=== PATIENT | male | born 1950 | race Caucasian/White ===

== ENCOUNTER 2017-03-11 17:10 | Inpatient (IN) | payer OTHER, MEDICARE ==
[~2017-03-11] VITALS: Ht 182.9 cm; Wt 123.3 kg
[2017-03-11] VITALS (8 sets, daily range): BP systolic 105–163; BP diastolic 65–85; PULSE 84–95; RESP 16–20; TEMP 98–98.6; O2SAT 95–100
[~2017-03-11 17:10] MED LIST: LISI-363 PO; METF500 PO; METO50CR PO; OXYC1SOL5 PO; RYTH225C PO; WARF3 PO
--- NOTE | 2017-03-11 17:51 | PD ---
HPI Chief Complaint: Respiratory Symptoms Time Seen by Provider: 17:50 Travel History International Travel<30 days: No Contact w/Intl Traveler<30days: No Traveled to known affect area: No History of Present Illness HPI 66-year-old male presents to emergency Department with several week history of increasing shortness of breath with exertion. Patient has history of atrial fibrillation, as well as history of anemia requiring transfusion in the distant past. Patient has been worked up for possible GI bleed at that time without significant findings according to the patient. Dark stools in the last several days. Patient denies abdominal pain, nausea, vomiting, or diarrhea. Patient denies chest pain, or wheezing. Patient denies lower extremity pain or swelling. He denies upper respiratory symptoms. The patient states increased dyspnea with any exertion, Even getting up to the bathroom. He reiterates this is been gradual onset over the past 2 weeks. He is allergic to adhesive. PFSH Past Medical History Arthritis: Yes (NECK, BACK, ALL JOINTS) Asthma: No Atrial Fibrillation: Yes Autoimmune Disease: No Blood Disorders: No Anxiety: Yes ( SAID HE HAS BEEN ANXIOUS ) Depression: No Heart Rhythm Problems: Yes (AFIB ) Cancer: Yes (left upper lung) Cardiovascular Problems: Yes (ATRIAL FIBRILLATION) High Cholesterol: Yes (BORDERLINE ) Chemotherapy: Yes Chest Pain: No Congestive Heart Failure: No COPD: No Cerebrovascular Accident: No Coronary Artery Disease: Yes Diabetes: Yes Diminished Hearing: No Diverticulitis: Yes Endocrine: Yes Gastrointestinal Disorders: Yes (hx of diverticulitis and ulcer) GERD: No Genitourinary: Yes Headaches: Yes Hepatitis: No Hiatal Hernia: No Herniated Disk: Yes Hypertension: Yes Immune Disorder: No Kidney Stones: Yes Musculoskeletal: Yes Neurologic: Yes (8YRS AGO -TIA ) Psychiatric: No Reproductive: No Respiratory: Yes (LUNG CANCER- L LOBECTOMY 2 YEARS AGO ) Immunizations Current: Yes ([id number]) Migraines: No Myocardial Infarction: No Radiation Therapy: No Renal Failure: No Seizures: No Sickle Cell Disease: No Sleep Apnea: No Thyroid Disease: No Ulcer: Yes Past Surgical History Abdominal Surgery: Yes (resection bowel/ gallbladder removal ) AICD: No Appendectomy: No Arteriovenous Shunt: No Body Medical Devices: METAL FRAGMENT IN ABD- WORKING ON RAILROAD Cardiac Surgery: No Cholecystectomy: Yes Ear Surgery: No Endocrine Surgery: No Eye Surgery: No Genitourinary Surgery: Yes (kidney stone removal/ laser ) Gynecologic Surgery: No Insulin Pump: No Joint Replacement: No Oral Surgery: Yes (gum surgery/ wisdome teeth ) Pacemaker: No Thoracic Surgery: Yes (left lung needle bx, L LUNG PARTIAL LOBECTOMY ) Tonsillectomy: Yes (AND ADENOIDS) Other Surgery: Yes Social History Alcohol Use: Yes (RARE) Tobacco Use: No Substance Use: No Allergies-Medications (Allergen,Severity, Reaction): Coded Allergies: adhesive (Unverified Allergy, Severe, skin irritation, 03/11/17) PAPER TAPE OK Reported Meds & Prescriptions Reported Meds & Active Scripts Active Reported Warfarin 3 Mg Tab 3 Mg PO DAILY Metoprolol Succinate ER 24 HR (Metoprolol Succinate) 50 Mg Tab 50 Mg PO DAILY Metformin (Metformin HCl) 500 Mg Tab 500 Mg PO BIDPC Lisinopril 20 Mg Tab 20 Mg PO DAILY Review of Systems Except as stated in HPI: all other systems reviewed are Neg General / Constitutional: No: Fever Eyes: No: Visual changes HENT: No: Headaches Cardiovascular: Positive: Irregular Rhythm, Dyspnea on exertion, No: Chest Pain or Discomfort, Palpitations, Tachycardia, Diaphoresis, Syncope, Varicosities, Edema, Cyanosis, Varicosities, Phlebitis, Claudication, Other Respiratory: No: Cough, Shortness of Breath, Wheezing Gastrointestinal: Positive: Hematochezia, Other, No: Nausea, Vomiting, Diarrhea , Abdominal Pain, Hematemesis, Constipation, Changes in Bowel Habits, Indigestion, Dysphagia, Loss of Appetite (dark stools) Genitourinary: No: Urgency, Frequency, Dysuria Musculoskeletal: No: Myalgias, Arthralgias, Limited ROM, Edema, Pain Skin: No Rash Neurologic: No: Weakness Psychiatric: No: Depression Endocrine: No: Polydipsia Hematologic/Lymphatic: No: Easy Bruising Physical Exam Narrative GENERAL: Patient appears in no acute distress. SKIN: Warm and dry. Decreased pallor. Normal turgor. HEAD: Atraumatic. Normocephalic. EYES: Pupils equal and round. No scleral icterus. Decreased pallor or drainage. ENT: No nasal bleeding or discharge. Mucous membranes pink and moist. Pharynx is clear. Airway is patent. NECK: Trachea midline. No JVD. Supple and nontender. CARDIOVASCULAR: Irregular rate and rhythm. RESPIRATORY: No accessory muscle use. Coarse to auscultation. Breath sounds equal bilaterally. GASTROINTESTINAL: Abdomen soft, non-tender, nondistended. Hepatic and splenic margins not palpable. MUSCULOSKELETAL: Extremities without clubbing, cyanosis, or edema. No obvious deformities. NEUROLOGICAL: Awake and alert. No obvious cranial nerve deficits. Motor grossly within normal limits. Five out of 5 muscle strength in the arms and legs. Normal speech. PSYCHIATRIC: Appropriate mood and affect; insight and judgment normal. Data Data Last Documented VS Vital Signs Date Time Temp Pulse Resp B/P (MAP) Pulse Ox O2 Delivery O2 Flow Rate FiO2 03/11/17 17:30 108 16 99 Room Air 03/11/17 17:12 98.6 163/85 (111) Orders Orders Complete Blood Count With Diff (03/11/17:) Comprehensive Metabolic Panel (03/11/17:) Act Partial Throm Time (Ptt) (03/11/17:) Prothrombin Time / Inr (Pt) (03/11/17:) Magnesium (Mg) (03/11/17:) Ckmb (Isoenzyme) Profile (03/11/17 17:22) Troponin I (03/11/17 17:22) Electrocardiogram (03/11/17 17:22) Chest, Pa & Lat (03/11/17 17:22) Type And Screen (03/11/17 18:05) Iv Access Insert/Monitor (03/11/17 18:05) Ecg Monitoring (03/11/17 18:05) Oximetry (03/11/17 18:05) Pantoprazole Inj (Protonix Inj) (03/11/17 18:15) Sodium Chloride 0.9% Flush (Ns Flush) (03/11/17 18:15) Red Blood Cells (Rbc) (03/11/17 18:08) Blood Product Administration (03/11/17 18:08) Sodium Chlor 0.9% 250 Ml Inj (Ns 250 Ml (03/11/17 18:15) Diphenhydramine Inj (Benadryl Inj) (03/11/17 18:15) Diphenhydramine Inj (Benadryl Inj) (03/11/17 18:15) Acetaminophen (Tylenol) (03/11/17 18:15) Acetaminophen (Tylenol) (03/11/17 18:15) CKMB (03/11/17 17:33) CKMB% (03/11/17 17:33) Labs Laboratory Tests Test 03/11/17 17:33 White Blood Count 9.5 TH/MM3 Red Blood Count 2.39 MIL/MM3 Hemoglobin 7.7 GM/DL Hematocrit 22.8 % Mean Corpuscular Volume 95.4 FL Mean Corpuscular Hemoglobin 32.3 PG Mean Corpuscular Hemoglobin Concent 33.8 % Red Cell Distribution Width 16.9 % Platelet Count 509 TH/MM3 Mean Platelet Volume 6.8 FL Neutrophils (%) (Auto) 67.9 % Lymphocytes (%) (Auto) 24.9 % Monocytes (%) (Auto) 6.3 % Eosinophils (%) (Auto) 0.4 % Basophils (%) (Auto) 0.5 % Neutrophils # (Auto) 6.5 TH/MM3 Lymphocytes # (Auto) 2.4 TH/MM3 Monocytes # (Auto) 0.6 TH/MM3 Eosinophils # (Auto) 0.0 TH/MM3 Basophils # (Auto) 0.0 TH/MM3 CBC Comment DIFF FINAL Differential Comment Prothrombin Time 20.5 SEC Prothromb Time International Ratio 2.0 RATIO Activated Partial Thromboplast Time 31.7 SEC Blood Urea Nitrogen 25 MG/DL Creatinine 1.32 MG/DL Random Glucose 128 MG/DL Total Protein 6.9 GM/DL Albumin 3.4 GM/DL Calcium Level 9.1 MG/DL Magnesium Level 1.9 MG/DL Alkaline Phosphatase 78 U/L Aspartate Amino Transf (AST/SGOT) 33 U/L Alanine Aminotransferase (ALT/SGPT) 36 U/L Total Bilirubin 0.3 MG/DL Sodium Level 139 MEQ/L Potassium Level 4.1 MEQ/L Chloride Level 106 MEQ/L Carbon Dioxide Level 26.5 MEQ/L Anion Gap 7 MEQ/L Estimat Glomerular Filtration Rate 54 ML/MIN Total Creatine Kinase 299 U/L Troponin I LESS THAN 0.02 NG/ML MDM Medical Decision Making Medical Screen Exam Complete: Yes Emergency Medical Condition: Yes Medical Record Reviewed: Yes Differential Diagnosis Symptomatic anemia. GI bleed. Anticoagulated. Dyspnea with exertion. History of lung cancer. Narrative Course Patient appears medically stable at time of exam. Vital signs are unremarkable. Rectal exam shows grossly guaiac positive stool. Chest x-ray shows no acute process per radiologist. Labs ordered including CBC, CMP, cardiac panel. EKG shows patient for ablation with rapid RVR with a pulse rate of 105. There is moderate generalized ST depression measured at 0.05. Type and screen is ordered. CBC is significant for hemoglobin of 7.7 with a hematocrit of 22.8 and a guaiac positive patient. Platelet count is elevated at 509. Coagulation studies shows a PT of 20.5, INR of 2.0, APTT is 31.7. Patient is on Coumadin. Chemistry show normal electrolytes. BUN is 25, crit need is 1.32, GFR is 54, glucose is 128 in a known type II diabetic. Troponin is less than 0.02. IV access is obtained and the patient is given 40 mg pantoprazole IV. One unit of blood is ordered to be given. 1830 hrs. call placed to the hospitalist for admission. Diagnosis Primary Impression: Symptomatic anemia Additional Impressions: Guaiac positive stools Anticoagulated on Coumadin Atrial fibrillation Qualified Codes: I48.2 - Chronic atrial fibrillation Condition: Stable Josiah Clifton Mar 11, 2017 17:51
--- NOTE | 2017-03-11 18:01 | RADRPT ---
EXAM DATE/TIME: 03/11/2017 17:41 [facility] COMPARISON: CHEST PA & LAT, August 24, 2014, 12:08. INDICATIONS : Short of breath. MEDICAL HISTORY : Carcinoma, lung. SURGICAL HISTORY : Lobectomy. ENCOUNTER: Initial ACUITY: 1 week PAIN SCORE: 0/10 LOCATION: Bilateral chest FINDINGS: The lungs are clear without infiltrate, nodule, or mass. There is no appreciable pleural effusion fo r technique. Heart and mediastinum are unremarkable. There are postsurgical changes on the left side and not significantly changed. CONCLUSION: 1. Postoperative left upper lobectomy with left basal scarring and minimal pleural thickening. No acu te findings. Alvin Bonilla MD on March 11, 2017 at 17:58
[2017-03-11] MEDS ORDERED: LISI-515 PO (18:04)
[2017-03-11] MEDS ORDERED: METF500T PO (18:04)
[2017-03-11] MEDS ORDERED: METO1TAB9 PO (18:05)
[2017-03-11] MEDS ORDERED: WARF-58 PO (18:05)
[2017-03-11 18:06] LABS: AUTOMATED NEUTROPHIL # 6.5 TH/MM3 (1.8-7.7); BASOPHIL % 0.5 % (0.0-2.0); EOSINOPHIL % 0.4 % (0.0-4.0); HEMATOCRIT 22.8 % (39.0-51.0); HEMO FLAGS DIFF FINAL; LYMPH % 24.9 % (9.0-44.0); LYMPHOCYTE # 2.4 TH/MM3 (1.0-4.8); MEAN CELL VOLUME 95.4 FL (80.0-100.0); MEAN CORPUSCULAR HEMOGLOBIN 32.3 PG (27.0-34.0); MEAN CORPUSCULAR HGB CONC 33.8 % (32.0-36.0); MONO % 6.3 % (0.0-8.0); NEUT % 67.9 % (16.0-70.0); PLATELET COUNT 509 TH/MM3 (150-450); RED BLOOD COUNT 2.39 MIL/MM3 (4.50-5.90); RED CELL DISTRIBUTION WIDTH 16.9 % (11.6-17.2); WHITE BLOOD COUNT 9.5 TH/MM3 (4.0-11.0)
[2017-03-11] MEDS ORDERED: SODIUM CHLORIDE 0.9% FLUSH 10 ML FLUSH IV FLUSH PRN ×2 (18:15→19:45)
[2017-03-11] MEDS ORDERED: PANTOPRAZOLE SODIUM 40 MG VIAL IVP ONE (18:15)
[2017-03-11] MEDS ORDERED: diphenhydrAMINE HCL 50 MG/ML VIAL IV PUSH ONE (18:15)
[2017-03-11] MEDS ORDERED: SODIUM CHLOR 0.9% 250 ML INJ 250 ML IV ONE (18:15)
[2017-03-11] MEDS ORDERED: diphenhydrAMINE HCL 50 MG/ML VIAL IV PUSH PRN (18:15)
[2017-03-11] MEDS ORDERED: ACETAMINOPHEN 325 MG TAB PO PRN (18:15)
[2017-03-11] MEDS ORDERED: ACETAMINOPHEN 325 MG TAB PO ONE (18:15)
[2017-03-11 18:16] LABS: APTT (PATIENT) 31.7 SEC (24.3-30.1); PROTHROMBIN TIME - PATIENT 20.5 SEC (9.8-11.6)
[2017-03-11 18:30] LABS: ALT (GPT) 36 U/L (12-78); ANION GAP 7 MEQ/L (5-15); AST (GOT) 33 U/L (15-37); BICARBONATE 26.5 MEQ/L (21.0-32.0); BLOOD UREA NITROGEN 25 MG/DL (7-18); CHLORIDE 106 MEQ/L (98-107); GLOMERULAR FILTRATION RATE 54 ML/MIN (>89); MAGNESIUM 1.9 MG/DL (1.5-2.5); POTASSIUM 4.1 MEQ/L (3.5-5.1); SODIUM (NA) 139 MEQ/L (136-145)
[2017-03-11 18:34] LABS: ALKALINE PHOSPHATASE 78 U/L (45-117); CREATINE KINASE 299 U/L (39-308); TOTAL BILIRUBIN ADULT 0.3 MG/DL (0.2-1.0)
[2017-03-11 18:46] LABS: CKMB 17.9 NG/ML (0.5-3.6)
[2017-03-11] MEDS ORDERED: SODIUM CHLOR 0.9% 1000 ML INJ 1,000 ML IV SCH (19:33)
[2017-03-11] MEDS ORDERED: GLUCAGON 1 MG/ML VIAL OTHER PRN (19:45)
[2017-03-11] MEDS ORDERED: DEXTROSE 50% IN WATER 50 ML VIAL(D50) IV PUSH PRN (19:45)
[2017-03-11] MEDS: DEXT 5%-NACL 0.9% 1000 ML INJ 1,000 ML IV SCH (20:58)
[2017-03-11] MEDS: SODIUM CHLORIDE 0.9% FLUSH 10 ML FLUSH IV FLUSH SCH (20:58)
--- NOTE | 2017-03-11 20:58 | HHI.HP ---
[facility] Service [facility] Primary Care Physician Denice Caballero MD ([place]ip[place]) Admission Diagnosis SYMPTOMATIC ANEMIA ON COUMADIN FOR AFIB Diagnoses: Travel History International Travel<30 Days: No Contact w/Intl Traveler <30 Da: No Traveled to Known Affected Are: No History of Present Illness 66-year-old male with a past medical history significant for A. fib anticoagulated on Coumadin, type 2 diabetes mellitus, history of DVT/PE and a history of small cell lung cancer presents to the emergency department with a 3 week history of increasing shortness of breath and fatigue. The patient's hemoglobin was found to be 7.7. He is tachycardic with a pulse of 108. Satting 99% on room air. He reports a history of black, tarry stools for several weeks. He was Hemoccult positive in the emergency department. He has no other complaints at this time. Reports a previous history of anemia requiring transfusion approximately 5 years ago. EGD/colonoscopy done at that time showed no acute bleeding. Review of Systems Denies fever or chills Denies blurry vision, otorrhea, rhinorrhea Denies sore throat and cough No chest pain, palpitations, positive shortness of breath No abdominal pain Denies constipation/diarrhea/nausea/vomiting Denies muscle pain/weakness No rashes Past Family Social History Past Medical History History of DVT/PE Atrial fibrillation anticoagulated on Coumadin Type 2 diabetes mellitus History of small cell lung cancer status post lobectomy and chemotherapy completed in 2013 Past Surgical History Back surgery 3 Diverticulitis surgery 2 Right knee surgery Lobectomy left lung Reported Medications Reported Meds & Active Scripts Active Reported Warfarin 3 Mg Tab 3 Mg PO DAILY Metoprolol Succinate ER 24 HR (Metoprolol Succinate) 50 Mg Tab 50 Mg PO DAILY Metformin (Metformin HCl) 500 Mg Tab 500 Mg PO BIDPC Lisinopril 20 Mg Tab 20 Mg PO DAILY Allergies: Coded Allergies: adhesive (Unverified Allergy, Severe, skin irritation, 03/11/17) PAPER TAPE OK Family History No family history of CAD/DM Social History Quit tobacco 3-4 years ago. Smoked for approximately 50 years. Rare alcohol use. Denies illicit drugs. Physical Exam Vital Signs Vital Signs Date Time Temp Pulse Resp B/P (MAP) Pulse Ox O2 Delivery O2 Flow Rate FiO2 03/11/17 19:17 85 16 142/79 (100) 100 Room Air 03/11/17 19:16 85 16 142/79 (100) 100 Room Air 03/11/17 17:30 108 16 99 Room Air 03/11/17 17:12 98.6 95 18 163/85 (111) 99 Physical Exam GENERAL: male sitting up in bed SKIN: No rashes, ecchymoses or lesions. Cool and dry. HEAD: Atraumatic. Normocephalic. No temporal or scalp tenderness. EYES: Pupils equal round and reactive. Extraocular motions intact. No scleral icterus. No injection or drainage. ENT: Nose without bleeding, purulent drainage or septal hematoma. Throat without erythema, tonsillar hypertrophy or exudate. Uvula midline. Airway patent. NECK: Trachea midline. No JVD or lymphadenopathy. Supple, nontender, no meningeal signs. CARDIOVASCULAR: Tachycardic. Irregularly irregular rhythm without murmurs, gallops, or rubs. RESPIRATORY: Clear to auscultation. Breath sounds equal bilaterally. No wheezes , rales, or rhonchi. GASTROINTESTINAL: Abdomen soft, non-tender, nondistended. No hepato-splenomegaly , or palpable masses. No guarding. MUSCULOSKELETAL: Extremities without clubbing, cyanosis, or edema. No joint tenderness, effusion, or edema noted. No calf tenderness. NEUROLOGICAL: Awake and alert. Cranial nerves II through XII intact. Motor and sensory grossly within normal limits. Normal speech. Laboratory Laboratory Tests Test 03/11/17 17:33 White Blood Count 9.5 Red Blood Count 2.39 Hemoglobin 7.7 Hematocrit 22.8 Mean Corpuscular Volume 95.4 Mean Corpuscular Hemoglobin 32.3 Mean Corpuscular Hemoglobin Concent 33.8 Red Cell Distribution Width 16.9 Platelet Count 509 Mean Platelet Volume 6.8 Neutrophils (%) (Auto) 67.9 Lymphocytes (%) (Auto) 24.9 Monocytes (%) (Auto) 6.3 Eosinophils (%) (Auto) 0.4 Basophils (%) (Auto) 0.5 Neutrophils # (Auto) 6.5 Lymphocytes # (Auto) 2.4 Monocytes # (Auto) 0.6 Eosinophils # (Auto) 0.0 Basophils # (Auto) 0.0 CBC Comment DIFF FINAL Differential Comment Prothrombin Time 20.5 Prothromb Time International Ratio 2.0 Activated Partial Thromboplast Time 31.7 Blood Urea Nitrogen 25 Creatinine 1.32 Random Glucose 128 Total Protein 6.9 Albumin 3.4 Calcium Level 9.1 Magnesium Level 1.9 Alkaline Phosphatase 78 Aspartate Amino Transf (AST/SGOT) 33 Alanine Aminotransferase (ALT/SGPT) 36 Total Bilirubin 0.3 Sodium Level 139 Potassium Level 4.1 Chloride Level 106 Carbon Dioxide Level 26.5 Anion Gap 7 Estimat Glomerular Filtration Rate 54 Total Creatine Kinase 299 Creatine Kinase MB 17.9 Troponin I LESS THAN 0.02 Result Diagram: 03/11/17173203/11/171732 Capringiles VTE Risk Assessment Caprini VTE Risk Assessment: Mod/High Risk (score >= 2) Caprini Risk Assessment Model Point Value = 1 Point Value = 2 Point Value = 3 Point Value = 5 Age 41-60 Minor surgery BMI > 25 kg/m2 Swollen legs Varicose veins or History of unexplained or recurrent spontaneous Oral contraceptives or hormone replacement Sepsis (< 1 month) Serious lung disease, including pneumonia (< 1 month) Abnormal pulmonary function Acute myocardial infarction Congestive heart failure (< 1 month) History of inflammatory bowel disease Medical patient at bed rest Age 61-74 Arthroscopic surgery Major open surgery (> 45 min) Laparoscopic surgery (> 45 min) Malignancy Confined to bed (> 72 hours) Immobilizing plaster cast Central venous access Age >= 75 History of VTE Family history of VTE Factor V Leiden Prothrombin [id number] Lupus anticoagulant Anticardiolipin antibodies Elevated serum homocysteine Heparin-induced thrombocytopenia Other congenital or acquired thrombophilia Stroke (< 1 month) Elective arthroplasty Hip, pelvis, or leg fracture Acute spinal cord injury (< 1 month) Prophylaxis Regimen Total Risk Factor Score Risk Level Prophylaxis Regimen 0-1 Low Early ambulation 2 Moderate Order ONE of the following: *Sequential Compression Device (SCD) *Heparin 5000 units SQ BID 3-4 Higher Order ONE of the following medications: *Heparin 5000 units SQ TID *Enoxaparin/Lovenox 40 mg SQ daily (WT < 150 kg, CrCl > 30 mL/min) *Enoxaparin/Lovenox 30 mg SQ daily (WT < 150 kg, CrCl > 10-29 mL/min) *Enoxaparin/Lovenox 30 mg SQ BID (WT < 150 kg, CrCl > 30 mL/min) AND/OR *Sequential Compression Device (SCD) 5 or more Highest Order ONE of the following medications: *Heparin 5000 units SQ TID (Preferred with Epidurals) *Enoxaparin/Lovenox 40 mg SQ daily (WT < 150 kg, CrCl > 30 mL/min) *Enoxaparin/Lovenox 30 mg SQ daily (WT < 150 kg, CrCl > 10-29 mL/min) *Enoxaparin/Lovenox 30 mg SQ BID (WT < 150 kg, CrCl > 30 mL/min) AND *Sequential Compression Device (SCD) Assessment and Plan Assessment and Plan Assessment/plan: 1. Severe anemia/GI bleed H&H 7.7/22.8 Transfuse 2 units PRBCs Serial H&H IV Protonix Hemoccult-positive in the ED with history of black, tarry stools Gastroenterology consulted, appreciate assistance 2. Tachycardia Suspect secondary to anemia Monitor 3. Atrial fibrillation Holding home Coumadin secondary to GI bleed INR 2.0 Continue metoprolol 4. HTN Continue home medications 5. GORDON Cr 1.32, was 1.23 in 2015 IVF hydration Avoid nephrotoxic agents Monitor renal function 6. Type 2 diabetes mellitus Holding home metformin SSI Monitor blood glucose FEN NPO D5 NS at 75 cc/hr Electrolytes: monitor and replete prn Holding pharmacologic anticoagulation secondary to GI bleed Case discussed with ER physician at length Physician Certification 2 Midnight Certification Type: Admission for Inpatient Services Order for Inpatient Services The services are ordered in accordance with Medicare regulations or non- Medicare payer requirements, as applicable. In the case of services not specified as inpatient-only, they are appropriately provided as inpatient services in accordance with the 2-midnight benchmark. Estimated LOS (days): 2 2 days is the estimated time the patient will need to remain in the hospital, assuming treatment plan goals are met and no additional complications. Post-Hospital Plan: Not yet determined Bianca Jacobs MD Mar 11, 2017 20:58
[2017-03-11] MEDS: INSULIN ASPART SUPPLEMENTAL SCALE SQ SCH (21:00)
[2017-03-12] VITALS (9 sets, daily range): BP systolic 87–112; BP diastolic 54–76; PULSE 72–92; RESP 18–20; TEMP 97.5–98.6; O2SAT 97–100
[2017-03-12 07:01] LABS: AUTOMATED NEUTROPHIL # 4.1 TH/MM3 (1.8-7.7); BASOPHIL # 0.1 TH/MM3 (0-0.2); BASOPHIL % 1.2 % (0.0-2.0); EOSINOPHIL # 0.1 TH/MM3 (0-0.4); EOSINOPHIL % 0.8 % (0.0-4.0); HEMATOCRIT 21.9 % (39.0-51.0); HEMO FLAGS DIFF FINAL; LYMPH % 24.3 % (9.0-44.0); LYMPHOCYTE # 1.5 TH/MM3 (1.0-4.8); MEAN CELL VOLUME 92.1 FL (80.0-100.0); MEAN CORPUSCULAR HEMOGLOBIN 31.8 PG (27.0-34.0); MEAN CORPUSCULAR HGB CONC 34.5 % (32.0-36.0); MONO % 5.8 % (0.0-8.0); NEUT % 67.9 % (16.0-70.0); PLATELET COUNT 393 TH/MM3 (150-450); RED BLOOD COUNT 2.37 MIL/MM3 (4.50-5.90); RED CELL DISTRIBUTION WIDTH 16.6 % (11.6-17.2)
[2017-03-12 07:16] LABS: INTERNATIONAL NORMALIZED RATIO 1.7 RATIO; PROTHROMBIN TIME - PATIENT 17.7 SEC (9.8-11.6)
[2017-03-12 07:23] LABS: ANION GAP 9 MEQ/L (5-15); AST (GOT) 28 U/L (15-37); BICARBONATE 24.4 MEQ/L (21.0-32.0); BLOOD UREA NITROGEN 21 MG/DL (7-18); CHLORIDE 106 MEQ/L (98-107); GLOMERULAR FILTRATION RATE 71 ML/MIN (>89); POTASSIUM 3.9 MEQ/L (3.5-5.1); SODIUM (NA) 139 MEQ/L (136-145)
[2017-03-12 07:24] LABS: ALT (GPT) 30 U/L (12-78)
[2017-03-12 07:26] LABS: ALKALINE PHOSPHATASE 68 U/L (45-117); TOTAL BILIRUBIN ADULT 0.7 MG/DL (0.2-1.0)
[2017-03-12] MEDS: INSULIN ASPART SUPPLEMENTAL SCALE SQ SCH ×4 (08:00→21:00)
[2017-03-12] MEDS: SODIUM CHLORIDE 0.9% FLUSH 10 ML FLUSH IV FLUSH SCH ×2 (09:00→23:32)
[2017-03-12] MEDS: DEXT 5%-NACL 0.9% 1000 ML INJ 1,000 ML IV SCH ×2 (09:05→23:20)
[2017-03-12] MEDS: LISINOPRIL 20 MG TAB PO SCH (09:18)
[2017-03-12] MEDS: METOPROLOL SUCCINATE 50 MG EXTENDED RELEASE TAB PO SCH (09:18)
--- NOTE | 2017-03-12 09:24 | PD.CONS ---
HPI History of Present Illness This is a 66 year old obese male who presents to the hospital with shortness of breath and fatigue. Patient states that he was feeling like his hemoglobin was dropping, started taking extra iron supplements. Patient states that he is on Coumadin understands the risk and benefit of GI bleed versus CVA. Patient states he had multiple testing done approximately 4 years ago, but no actual source of bleed was identified. Patient was discussing with nurse his request, and is refusing any testing for GI bleed even before my exam. He is requesting a blood transfusion, and notes that he will stay on his Coumadin due to the risk of stroke. Patient has a significant history of DVT, black tarry stools and fatigue related to his symptoms, diabetes mellitus. Patient was noted to be Hemoccult positive in the emergency room setting. He denies any nausea vomiting, no abdominal distention, no diarrhea, no constipation. (Jo-Ann Anderson) PFSH Past Medical History History of DVT/PE Atrial fibrillation anticoagulated on Coumadin Type 2 diabetes mellitus History of small cell lung cancer status post lobectomy and chemotherapy completed in 2013 Street of GI bleed 4 years ago Past Surgical History Back surgery 3 Diverticulitis surgery 2 Right knee surgery Lobectomy left lung (Jo-Ann Anderson) Coded Allergies: adhesive (Unverified Allergy, Severe, skin irritation, 03/11/17) PAPER TAPE OK Medications Administered Medications Medications (Trade) Dose Ordered Sig/Harsh Route PRN Reason Start Time Stop Time Status Last Admin Dose Admin Sodium Chloride 250 ml @ 15 mls/hr ONCE ONCE IV 03/11/17 18:15 03/12/17 10:54 03/11/17 22:15 Sodium Chloride (NS Flush) 2 ml UNSCH PRN IV FLUSH FLUSH AFTER USING IV ACCESS 03/11/17 19:45 03/11/17 21:19 Sodium Chloride (NS Flush) 2 ml BID IV FLUSH 03/11/17 21:00 03/11/17 20:58 Lisinopril (Prinivil) 20 mg DAILY PO 03/12/17 09:00 03/12/17 09:18 Metoprolol Succinate (Toprol Xl) 50 mg DAILY PO 03/12/17 09:00 03/12/17 09:18 Dextrose/Sodium Chloride 1,000 ml @ 75 mls/hr [id number] IV 03/11/17 19:45 03/11/17 20:58 Family History No family history of CAD/DM Social History Quit tobacco 3-4 years ago. Smoked for approximately 50 years. Rare alcohol use. Denies illicit drugs. (Jo-Ann Anderson) Review of Systems Constitutional: COMPLAINS OF: Fatigue, Dizziness Respiratory: COMPLAINS OF: Shortness of breath Gastrointestinal: COMPLAINS OF: Black stools (Jo-Ann Anderson) GI Exam Vitals I&O Vital Signs Date Time Temp Pulse Resp B/P (MAP) Pulse Ox O2 Delivery O2 Flow Rate FiO2 03/12/17 08:42 84 03/12/17 07:54 97.5 81 19 112/76 (88) 99 03/12/17 04:38 98.6 83 18 100/65 (77) 98 03/12/17 00:34 92 03/11/17 23:55 98.1 87 18 105/65 (78) 98 03/11/17 22:40 98.0 84 18 110/70 (83) 98 03/11/17 22:40 98.0 84 18 110/70 98 03/11/17 22:15 98.1 90 18 116/69 98 03/11/17 22:13 98.1 90 18 116/69 (85) 98 03/11/17 21:10 98.0 91 20 131/79 (96) 95 03/11/17 20:56 03/11/17 19:17 85 16 142/79 (100) 100 Room Air 03/11/17 19:16 85 16 142/79 (100) 100 Room Air 03/11/17 17:30 108 16 99 Room Air 03/11/17 17:12 98.6 95 18 163/85 (111) 99 I/O 03/11/17 03/11/17 03/11/17 03/12/17 03/12/17 03/12/17 07:00 15:00 23:00 07:00 15:00 23:00 Intake Total 400 ml Balance 400 ml Intake Packed Cells 400 ml Imaging Last Impressions Chest X-Ray 03/11/17 9512 Signed Impressions: Service Date/Time: Saturday, March 11, 2017 17:41 - CONCLUSION: 1. Postoperative left upper lobectomy with left basal scarring and minimal pleural thickening. No acute findings. Alvin Bonilla MD Laboratory Test 03/11/17 17:33 03/12/17 06:43 White Blood Count 9.5 TH/MM3 6.0 TH/MM3 Red Blood Count 2.39 MIL/MM3 2.37 MIL/MM3 Hemoglobin 7.7 GM/DL 7.5 GM/DL Hematocrit 22.8 % 21.9 % Mean Corpuscular Volume 95.4 FL 92.1 FL Mean Corpuscular Hemoglobin 32.3 PG 31.8 PG Mean Corpuscular Hemoglobin Concent 33.8 % 34.5 % Red Cell Distribution Width 16.9 % 16.6 % Platelet Count 509 TH/MM3 393 TH/MM3 Mean Platelet Volume 6.8 FL 6.6 FL Neutrophils (%) (Auto) 67.9 % 67.9 % Lymphocytes (%) (Auto) 24.9 % 24.3 % Monocytes (%) (Auto) 6.3 % 5.8 % Eosinophils (%) (Auto) 0.4 % 0.8 % Basophils (%) (Auto) 0.5 % 1.2 % Neutrophils # (Auto) 6.5 TH/MM3 4.1 TH/MM3 Lymphocytes # (Auto) 2.4 TH/MM3 1.5 TH/MM3 Monocytes # (Auto) 0.6 TH/MM3 0.3 TH/MM3 Eosinophils # (Auto) 0.0 TH/MM3 0.1 TH/MM3 Basophils # (Auto) 0.0 TH/MM3 0.1 TH/MM3 CBC Comment DIFF FINAL DIFF FINAL Differential Comment Prothrombin Time 20.5 SEC 17.7 SEC Prothromb Time International Ratio 2.0 RATIO 1.7 RATIO Activated Partial Thromboplast Time 31.7 SEC Blood Urea Nitrogen 25 MG/DL 21 MG/DL Creatinine 1.32 MG/DL 1.04 MG/DL Random Glucose 128 MG/DL 129 MG/DL Total Protein 6.9 GM/DL 6.2 GM/DL Albumin 3.4 GM/DL 2.9 GM/DL Calcium Level 9.1 MG/DL 8.3 MG/DL Magnesium Level 1.9 MG/DL Alkaline Phosphatase 78 U/L 68 U/L Aspartate Amino Transf (AST/SGOT) 33 U/L 28 U/L Alanine Aminotransferase (ALT/SGPT) 36 U/L 30 U/L Total Bilirubin 0.3 MG/DL 0.7 MG/DL Sodium Level 139 MEQ/L 139 MEQ/L Potassium Level 4.1 MEQ/L 3.9 MEQ/L Chloride Level 106 MEQ/L 106 MEQ/L Carbon Dioxide Level 26.5 MEQ/L 24.4 MEQ/L Anion Gap 7 MEQ/L 9 MEQ/L Estimat Glomerular Filtration Rate 54 ML/MIN 71 ML/MIN Total Creatine Kinase 299 U/L Creatine Kinase MB 17.9 NG/ML Troponin I LESS THAN 0.02 NG/ML Physical Examination HEENT: Pupils round and reactive to light; normocephalic; atraumatic; no jaundice. Throat is clean NECK: Neck is supple, no JVD, no lymphadenopathy. CHEST: Chest is clear wheezes or rhonchi CARDIAC: Regular rate and rhythm with no murmur gallop or rubs. ABDOMEN: Soft, nondistended, nontender; no hepatosplenomegaly; bowel sounds are present in all four quadrants. EXTREMITIES: No clubbing, cyanosis, or edema. SKIN: Normal; no rash; no jaundice. SAFETY SEALER: No focal deficits; alert and oriented times three. (Jo-Ann Anderson) Assessment and Plan Assessment: (1) GI bleed ICD Codes: K92.2 - Gastrointestinal hemorrhage, unspecified (2) Guaiac positive stools ICD Codes: R19.5 - Other fecal abnormalities Status: Acute (3) Symptomatic anemia ICD Codes: D64.9 - Anemia, unspecified Status: Acute Plan GI bleed, with hemoglobin 7.7. Probable secondary to Coumadin therapy PPI IV Clear liquids Currently patient is refusing any diagnostic testing, states he has been through these test before and no obvious bleeding site was identified. Really he is requesting a blood transfusion, and has discussed his wishes with the nurse, self and his attending physician. Risk and benefits were discussed and patient understands our recommendations. Carafate 1 g before meals and at bedtime Hemoccult stools Call for any acute onset of bright red bleeding, only Coumadin is being withheld per attending. Hospital treatment and course will be based on patient's wishes and symptom management Addendum to am note. Patient has decided to follow through with recommended EGD/ Colonoscopy. Ordered for am with prep, NPO at midnight. This patient was seen by myself and Dr. More, this note was written on his behalf (Jo-Ann Anderson) Physician Comments Patient seen and examined Agree with above Continue with current supportive care Monitor labs Plan for an EGD and a colonoscopy tomorrow (Femi More MD) Jo-Ann Anderson Mar 12, 2017 09:24 Femi More MD Mar 12, 2017 20:08
--- NOTE | 2017-03-12 11:47 | EKG ---
Date Performed: 03/11/2017 Time Performed: 17:27:45 PTAGE: 66 years EKG: ATRIAL FIBRILLATION WITH RAPID VENTRICULAR RESPONSE WITH ABERRANT CONDUCTION OR VENTRICULAR PREMATURE COMPLEXES MODERATE ST DEPRESSION ABNORMAL ECG Compared to prior tracing no significant mary nge PREVIOUS TRACING : 08/24/2014 11.21 DOCTOR: Augustine Stanton Interpretating Date/Time 03/12/2017 11:47:06
[2017-03-12] MEDS: SUCRALFATE 1 GM/10 ML CUP PO SCH ×3 (12:51→23:27)
[2017-03-12 15:31] LABS: HEMATOCRIT 22.2 % (39.0-51.0); REVIEW FLAG FINAL
--- NOTE | 2017-03-12 16:04 | HHI.PR ---
Subjective Remarks Patient resting in bed reported no abdominal pain FOBT came back positive Patient continued to refuse doing GI scope, I had a very lengthy discussion with him and with his over the phone for almost 50 minutes discussing with them the outcome and the risk and the benefits of doing a workup for his anemia Patient sitting there is no reason to do workup since he had it a few years ago and he was in getting any answer forward the bleed is. However patient currently having positive blood in the stool, he dropped from 14 hemoglobin in 2014-7.5 now, patient received one pack of blood He stated it's not symptomatic however due to to his history of GI surgery in the past we need to assess his bleeding source Objective Vitals Vital Signs Date Time Temp Pulse Resp B/P (MAP) Pulse Ox O2 Delivery O2 Flow Rate FiO2 03/12/17 15:54 98.0 75 18 90/70 (77) 100 03/12/17 11:48 97.7 72 20 87/54 (65) 99 03/12/17 08:42 84 03/12/17 07:54 97.5 81 19 112/76 (88) 99 03/12/17 04:38 98.6 83 18 100/65 (77) 98 03/12/17 00:34 92 03/11/17 23:55 98.1 87 18 105/65 (78) 98 03/11/17 22:40 98.0 84 18 110/70 (83) 98 03/11/17 22:40 98.0 84 18 110/70 98 03/11/17 22:15 98.1 90 18 116/69 98 03/11/17 22:13 98.1 90 18 116/69 (85) 98 03/11/17 21:10 98.0 91 20 131/79 (96) 95 03/11/17 20:56 03/11/17 19:17 85 16 142/79 (100) 100 Room Air 03/11/17 19:16 85 16 142/79 (100) 100 Room Air 03/11/17 17:30 108 16 99 Room Air 03/11/17 17:12 98.6 95 18 163/85 (111) 99 I/O 03/11/17 03/11/17 03/11/17 03/12/17 03/12/17 03/12/17 07:00 15:00 23:00 07:00 15:00 23:00 Intake Total 400 ml Balance 400 ml Packed Cells 400 ml Result Diagram: 03/12/17 1404 03/12/17 0643 Objective Remarks GENERAL: This is a well-nourished, well-developed patient, in no apparent distress. SKIN: No rashes, warm and dry HEAD: Atraumatic. Normocephalic. EYES: Pupils equal round and reactive. Extraocular motions intact. No scleral icterus. ENT: Nose without bleeding, or drainage, Airway patent. NECK: Trachea midline. Supple CARDIOVASCULAR: Regular rate and rhythm without murmurs, gallops, or rubs. RESPIRATORY: Fair air entry bilaterally. No wheezes, rales, or rhonchi. GASTROINTESTINAL: Abdomen soft, non-tender, nondistended. Positive bowel sounds MUSCULOSKELETAL: Extremities without clubbing, cyanosis, or edema. Pedal pulses appreciated NEUROLOGICAL: Awake and alert. Moves all extremity. Normal speech.no focal neurological deficit A/P Assessment and Plan 03/12: Very lengthy discussion with the patient and his , finally agreed on going for the GI procedure as part of the workup for his anemia, time spent 1 hour 1. Acute GI bleed anemia H&H 7.7/22.8 Status post blood transfusion Continue Serial H&H IV Protonix Hemoccult-positive in the ED with history of black, tarry stools Appreciate GI consultation, recommended GI scope, at the beginning patient refused however after lengthy discussion with him and his for almost one hour they ended up agreeing to do the procedure 2. Tachycardia Suspect secondary to anemia Monitor 3. Atrial fibrillation Holding home Coumadin secondary to GI bleed INR 2.0 Continue metoprolol 4. HTN Continue home medications 5. GORDON Creatinine trending down from 1.32-1.04 IVF hydration Avoid nephrotoxic agents Monitor renal function 6. Type 2 diabetes mellitus Holding home metformin SSI Monitor blood glucose 7. SCD for DVT prophylaxis Lay Adkins MD Mar 12, 2017 16:04
[2017-03-12] MEDS ORDERED: PEG (High)/E-LYTE SOLN 4000 ML BTL PO ONE (16:45)
[2017-03-12 17:14] LABS: HEMATOCRIT 23.7 % (39.0-51.0); REVIEW FLAG FINAL
[2017-03-12] MEDS ORDERED: SODIUM CHLORID 0.9% 500 ML IV PRN (20:15)
[2017-03-12] MEDS ORDERED: LACTATED RINGER'S 1000 ML IV PRN (20:15)
[2017-03-12] MEDS ORDERED: INSULIN HUMAN REGULAR 1,000 UNITS/10 ML VIAL SQ PRN (20:15)
[2017-03-12] MEDS ORDERED: POVIDONE IODINE 5% (ANTISEPSIS KIT) 4 APPLICATIONS EACH NARE PRN (20:15)
[2017-03-12] MEDS ORDERED: CHLORHEXIDINE GLUCONATE 2 % 1 PACK (2 CLOTHS) TOPICAL PRN (20:15)
[2017-03-12] MEDS ORDERED: METOPROLOL TARTRATE 25 MG TAB PO PRN (20:15)
[2017-03-12] MEDS: PANTOPRAZOLE SODIUM 40 MG VIAL IV PUSH SCH (23:27)
[2017-03-13] VITALS (8 sets, daily range): BP systolic 86–123; BP diastolic 54–74; PULSE 61–97; RESP 17–20; TEMP 97.6–98.5; O2SAT 97–100
[2017-03-13] MEDS: SODIUM CHLORIDE 0.9% FLUSH 10 ML FLUSH IV FLUSH SCH ×2 (07:24→21:35)
[2017-03-13] MEDS: INSULIN ASPART SUPPLEMENTAL SCALE SQ SCH ×4 (07:30→21:00)
[2017-03-13] MEDS: LISINOPRIL 20 MG TAB PO SCH (08:18)
[2017-03-13] MEDS: DEXT 5%-NACL 0.9% 1000 ML INJ 1,000 ML IV SCH (08:18)
[2017-03-13] MEDS: SUCRALFATE 1 GM/10 ML CUP PO SCH ×4 (08:18→21:34)
[2017-03-13] MEDS: METOPROLOL SUCCINATE 50 MG EXTENDED RELEASE TAB PO SCH (08:18)
[2017-03-13 08:49] LABS: HEMATOCRIT 23.4 % (39.0-51.0); MEAN CELL VOLUME 92.6 FL (80.0-100.0); MEAN CORPUSCULAR HEMOGLOBIN 30.2 PG (27.0-34.0); MEAN CORPUSCULAR HGB CONC 32.6 % (32.0-36.0); PLATELET COUNT 422 TH/MM3 (150-450); RED BLOOD COUNT 2.53 MIL/MM3 (4.50-5.90); RED CELL DISTRIBUTION WIDTH 17.1 % (11.6-17.2); REVIEW FLAG FINAL; WHITE BLOOD COUNT 4.9 TH/MM3 (4.0-11.0)
[2017-03-13 08:56] LABS: INTERNATIONAL NORMALIZED RATIO 1.4 RATIO
[2017-03-13] MEDS ORDERED: PHENYLEPH/NS 1000 MCG/10 ML SYR IV ONE (12:00)
[2017-03-13] MEDS ORDERED: ePHEDrine/NS 25 MG/5 ML SYR IV ONE (12:00)
[2017-03-13] MEDS ORDERED: PROPOFOL 200 MG/20 ML AMP IV ONE (12:00)
[2017-03-13] MEDS ORDERED: LIDOCAINE HCL 1% PF 5 ML SYRINGE OTHER ONE (12:00)
--- NOTE | 2017-03-13 14:02 | PD.PROCEDR ---
GI Procedure PROCEDURE PERFORMED EGD followed by colonoscopy with snare polypectomy and biopsy INDICATION FOR PROCEDURE Guaiac-positive stools, anemia PROCEDURE: The procedure, risks and benefits were discussed with Mr. Riley and informed consent was obtained. Anesthesia sedated him with Diprivan. He was placed in the left lateral decubitus position. EGD: The Pentax videoscope was introduced through the oropharynx and advanced to the second portion of the duodenum under direct visualization. Retroflexion was performed in the stomach. FINDINGS: The esophagus this was normal The stomach this was normal The duodenum this was normal Colonoscopy: The Pentax videoscope was introduced through the rectum and advanced to cecum where the ileocecal valve and appendiceal orifice were identified. Retroflexion was performed in the rectum. Colonic prep was good FINDINGS: Colonic withdrawal time greater than 6 minutes as the scope was slowly withdrawn colonic mucosa was carefully inspected the patient was noted to have a diminutive polyp in the transverse colon this was removed using cold biopsy forceps the patient was also noted to have 2 polyps in the descending colon both were sessile and medium in size both were excised using cold snare technique all polyps were retrieved for further evaluation the patient was also noted to have mild diverticulosis of the ascending transverse and descending colon with moderate diverticulosis of the sigmoid colonic examination otherwise unremarkable so as retroflexion in rectal examination ESTIMATED BLOOD LOSS: None SPECIMENS REMOVED: Colon biopsies COMPLICATIONS: None IMPRESSION: Normal EGD Colon polyps Diverticulosis PLAN: Advance diet as tolerated Await biopsies Patient may be discharged from a GI standpoint Follow-up in clinic in 2-4 weeks Colonoscopy in 5 years Probable outpatient capsule endoscopy Recommend iron supplementation daily Femi More MD Mar 13, 2017 14:02
[2017-03-13] MEDS ORDERED: FERR325T18 PO (16:51)
--- NOTE | 2017-03-13 16:52 | HHI.DCPOC ---
Discharge Care Plan Diagnosis: (1) Symptomatic anemia (2) GI bleed (3) Anticoagulated on Coumadin (4) Guaiac positive stools (5) Atrial fibrillation Goals to Promote Your Health * To prevent worsening of your condition and complications * To maintain your health at the optimal level Directions to Meet Your Goals Take your medications as prescribed Follow your dietary instruction Follow activity as directed Keep your appointments as scheduled Take your immunizations and boosters as scheduled If your symptoms worsen call your PCP, if no PCP go to Urgent Care Center or Emergency Room Smoking is Dangerous to Your Health. Avoid second hand smoke Call the 24-hour hour crisis hotline for domestic abuse at Kelli Mclaughlin MD Mar 13, 2017 16:52
--- NOTE | 2017-03-13 17:07 | HHI.DS ---
Discharge Summary Admission Date Mar 12, 2017 at 15:41 Discharge Date: Mar 13, 2017 Admitting Diagnosis SYMPTOMATIC ANEMIA ON COUMADIN FOR AFIB (1) Symptomatic anemia ICD Code: D64.9 - Anemia, unspecified Status: Acute (2) GI bleed ICD Code: K92.2 - Gastrointestinal hemorrhage, unspecified (3) Anticoagulated on Coumadin ICD Code: Z51.81 - Encounter for therapeutic drug level monitoring; Z79.01 - snf (current) use of anticoagulants Status: Acute (4) Guaiac positive stools ICD Code: R19.5 - Other fecal abnormalities Status: Acute Procedures EGD/Colonoscopy Brief History - From Admission History of present illness from the admitting physician 66-year-old male with a past medical history significant for A. fib anticoagulated on Coumadin, type 2 diabetes mellitus, history of DVT/PE and a history of small cell lung cancer presents to the emergency department with a 3 week history of increasing shortness of breath and fatigue. The patient's hemoglobin was found to be 7.7. He is tachycardic with a pulse of 108. Satting 99% on room air. He reports a history of black, tarry stools for several weeks. He was Hemoccult positive in the emergency department. He has no other complaints at this time. Reports a previous history of anemia requiring transfusion approximately 5 years ago. EGD/colonoscopy done at that time showed no acute bleeding. CBC/BMP: 03/13/17 0828 03/12/17 0643 Significant Findings Laboratory Tests Test 03/11/17 17:33 03/12/17 06:43 03/12/17 14:04 03/12/17 16:31 Red Blood Count 2.39 MIL/MM3 (4.50-5.90) 2.37 MIL/MM3 (4.50-5.90) Hemoglobin 7.7 GM/DL (13.0-17.0) 7.5 GM/DL (13.0-17.0) 7.4 GM/DL (13.0-17.0) 8.1 GM/DL (13.0-17.0) Hematocrit 22.8 % (39.0-51.0) 21.9 % (39.0-51.0) 22.2 % (39.0-51.0) 23.7 % (39.0-51.0) Platelet Count 509 TH/MM3 (150-450) Mean Platelet Volume 6.8 FL (7.0-11.0) 6.6 FL (7.0-11.0) Prothrombin Time 20.5 SEC (9.8-11.6) 17.7 SEC (9.8-11.6) Activated Partial Thromboplast Time 31.7 SEC (24.3-30.1) Blood Urea Nitrogen 25 MG/DL (7-18) 21 MG/DL (7-18) Creatinine 1.32 MG/DL (0.60-1.30) Random Glucose 128 MG/DL (74-106) 129 MG/DL (74-106) Estimat Glomerular Filtration Rate 54 ML/MIN (>89) 71 ML/MIN (>89) Creatine Kinase MB 17.9 NG/ML (0.5-3.6) Troponin I LESS THAN 0.02 NG/ML Total Protein 6.2 GM/DL (6.4-8.2) Albumin 2.9 GM/DL (3.4-5.0) Calcium Level 8.3 MG/DL (8.5-10.1) Test 03/13/17 08:28 Red Blood Count 2.53 MIL/MM3 (4.50-5.90) Hemoglobin 7.6 GM/DL (13.0-17.0) Hematocrit 23.4 % (39.0-51.0) Mean Platelet Volume 6.3 FL (7.0-11.0) Prothrombin Time 14.0 SEC (9.8-11.6) PE at Discharge GENERAL: This is a well-nourished, well-developed patient, in no apparent distress. SKIN: No rashes, warm and dry HEAD: Atraumatic. Normocephalic. EYES: Pupils equal round and reactive. Extraocular motions intact. No scleral icterus. ENT: Nose without bleeding, or drainage, Airway patent. NECK: Trachea midline. Supple CARDIOVASCULAR: Regular rate and rhythm without murmurs, gallops, or rubs. RESPIRATORY: Fair air entry bilaterally. No wheezes, rales, or rhonchi. GASTROINTESTINAL: Abdomen soft, non-tender, nondistended. Positive bowel sounds MUSCULOSKELETAL: Extremities without clubbing, cyanosis, or edema. Pedal pulses appreciated NEUROLOGICAL: Awake and alert. Moves all extremity. Normal speech.no focal neurological deficit Pt update on day of discharge Patient reports he is feeling better overall but still feels very fatigued when he tries to walk around. EGD/colonoscopy unrevealing. Hemoglobin noted to be 7.6. We discussed further treatment options including giving him 1 more unit of blood prior to discharge. He is agreeable to that and will follow-up outpatient with GI to consider capsule endoscopy. Hospital Course 66-year-old male admitted with symptomatic anemia. The patient was positive for Hemoccult in the stool. He was seen by GI who recommended endoscopy. The patient initially refused because he stated that he had a similar issue about 4 years ago and nothing was found with endoscopies. The patient received 1 unit of PRBC. He later agreed to have EGD/colonoscopy. EGD was unremarkable. Per colonoscopy report, there were some polyps which were biopsied. The patient admits to a history of iron deficiency and states he stopped taking iron years ago. He is H&H initially went up after the initial transfusion but trended back down to 7.6. He had no further evidence of active bleeding. The patient is given another unit of PRBC prior to discharge. He is advised to follow-up outpatient with GI for capsule endoscopy. Regarding warfarin therapy. The patient has a significant history of CVA and pulmonary embolus. Therefore the benefit of warfarin outweigh the risk of bleeding at this point. He is advised to resume warfarin on discharge. The patient was given a prescription for iron supplements. Pt Condition on Discharge: Good Discharge Disposition: Discharge Home Discharge Time: <= 30 minutes Discharge Instructions DIET: Follow Instructions for: Heart Healthy Diet Activities you can perform: Regular-No Restrictions Follow up Referrals: Gastroenterology - 3 Weeks @ [facility] New Medications: Ferrous Sulfate (Ferrous Sulfate) 325 Mg (65 Mg Iron) Tablet 325 MG PO BIDPC for Nutritional Supplement, #60 TAB 0 Refills Continued Medications: Lisinopril (Lisinopril) 20 Mg Tab 20 MG PO DAILY, #30 TAB 0 Refills Metformin (Metformin) 500 Mg Tab 500 MG PO BIDPC for Blood Sugar Management, #60 TAB 0 Refills Metoprolol Succinate ER 24 HR (Metoprolol Succinate ER 24 HR) 50 Mg Tab 50 MG PO DAILY, #30 TAB 0 Refills Warfarin (Warfarin) 3 Mg Tab 3 MG PO DAILY for Blood Clot Prevention, #30 TAB 0 Refills Kelli Mclaughlin MD Mar 13, 2017 17:07
[2017-03-13] MEDS ORDERED: SODIUM CHLOR 0.9% 250 ML INJ 250 ML IV ONE (17:15)
[2017-03-13] MEDS: PANTOPRAZOLE SODIUM 40 MG VIAL IV PUSH SCH (21:35)
== END 2017-03-13 23:10 | disposition home or self-care (01) | DRG 378 ==
LOC: NEPD 17:10 → NEDA 19:22 → NEPHCDU 21:06 → OBSVTOIN 03-12 15:41 → N04A 03-12 20:50
PROVIDERS: ADMIT Family Medicine; ATTEND Family Medicine
PROC: 30233N1 Transfusion of Nonautologous Red Blood Cells into Peripheral Vein, Percutaneous Approach (ICD-10-PCS; principal; 2017-03-11)
PROC: 0DBM8ZX Excision of Descending Colon, Via Natural or Artificial Opening Endoscopic, Diagnostic (ICD-10-PCS; 2017-03-13)
PROC: 0DBL8ZX Excision of Transverse Colon, Via Natural or Artificial Opening Endoscopic, Diagnostic (ICD-10-PCS; 2017-03-13)
PROC: 0DJ08ZZ Inspection of Upper Intestinal Tract, Via Natural or Artificial Opening Endoscopic (ICD-10-PCS; 2017-03-13 13:26)
DX: K92.2 Gastrointestinal hemorrhage, unspecified (principal); D62 Acute posthemorrhagic anemia; N17.9 Acute kidney failure, unspecified; I10 Essential (primary) hypertension; R00.0 Tachycardia, unspecified; E11.9 Type 2 diabetes mellitus without complications; Z79.84 Long term (current) use of oral hypoglycemic drugs; I48.2 Chronic atrial fibrillation; Z79.01 Long term (current) use of anticoagulants; Z86.711 Personal history of pulmonary embolism; Z86.718 Personal history of other venous thrombosis and embolism; Z85.118 Personal history of other malignant neoplasm of bronchus and lung; Z90.2 Acquired absence of lung [part of]; Z92.21 Personal history of antineoplastic chemotherapy; K57.90 Diverticulosis of intestine, part unspecified, without perforation or abscess without bleeding; D12.2 Benign neoplasm of ascending colon; D12.3 Benign neoplasm of transverse colon; I25.10 Atherosclerotic heart disease of native coronary artery without angina pectoris; E66.9 Obesity, unspecified; Z68.36 Body mass index [BMI] 36.0-36.9, adult; Z87.891 Personal history of nicotine dependence; Z86.73 Personal history of transient ischemic attack (TIA), and cerebral infarction without residual deficits
CPT/HCPCS: 36430; 71020; 80053; 82550; 82552; 82948; 83735; 84484; 85014; 85018; 85025; 85027; 85610; 85730; 86850; 86900; 86901; 86920; 88305; 93005; 96361; 96365; 96375; C9113; G0378; J1200; J2370; J7042; J7050; P9016